=== PATIENT | female | born 1985 | race Caucasian/White ===

== ENCOUNTER 2017-09-15 16:23 | Emergency (ER) | payer SELFPAY ==
[~2017-09-15] VITALS: Ht 175.3 cm; Wt 76.8 kg
[~2017-09-15 16:23] MED LIST: ACET325T26 PO; CALC500T PO; DOCU-131 PO; IBUP-1222 PO; PREN1TAB60 PO
[2017-09-15 17:51] VITALS: BP 120/77
== END 2017-09-15 17:56 | disposition home or self-care (01) ==
LOC: ED 17:00
DX: H66.91 Otitis media, unspecified, right ear (principal); R05 Cough
CPT/HCPCS: 99283